=== PATIENT | female | born 1945 | race Caucasian/White ===

== ENCOUNTER 2016-04-04 13:29 | Inpatient (IN) | payer MEDICARE, MEDICAID ==
[~2016-04-04] VITALS: Ht 154.9 cm; Wt 44.3 kg
[~2016-04-04 13:29] MED LIST: HALO5 PO
[2016-04-04] MEDS ORDERED: HALOPERIDOL 5 MG TABLET PO PRN (15:45)
[2016-04-04 16:06] VITALS: BP 128/67
[2016-04-04] MEDS: HALOPERIDOL 5 MG TABLET PO SCH (16:20)
[2016-04-04] MEDS ORDERED: INFLUENZA VIRUS VACCINE QVS 2016-17 (3YR+)/PF 60 MCG/0.5 ML SYRINGE IM ONE (16:30)
[2016-04-04 17:26] LABS: BASOPHILS # (AUTO) 0.02 K/uL (0.00-0.20); BASOPHILS % (AUTO) 0.3 % (0.0-2.0); EOSINOPHILS # (AUTO) 0.08 K/uL (0.00-0.70); EOSINOPHILS % (AUTO) 1.14 % (1.0-6.0); HEMATOCRIT 37.7 % (36-46); HEMOGLOBIN 12.3 g/dL (12.0-16.0); LYMPHOCYTES # (AUTO) 2.3 K/uL (1.0-4.8); LYMPHOCYTES % (AUTO) 32.9 % (22.0-44.0); MEAN CORPUSCULAR HEMOGLOBIN 27.7 pg (26.0-34.0); MEAN CORPUSCULAR HGB CONC 32.7 G/dL (31.0-37.0); MEAN CORPUSCULAR VOLUME 85 fL (80-100); MONOCYTES # (AUTO) 0.6 K/uL (0.1-1.0); MONOCYTES % (AUTO) 8.6 % (2.0-9.0); NEUTROPHILS # (AUTO) 3.9 K/uL (1.8-7.7); NEUTROPHILS % (AUTO) 57.1 % (40.0-70.0); PLATELET COUNT (AUTO) 319 K/uL (150-450); RED BLOOD CELL COUNT(AUTO) 4.45 MIL/uL (4.00-5.20); RED CELL DISTRIBUTION WIDTH 18.3 % (11.5-14.5); WHITE BLOOD COUNT (AUTO) 6.9 K/uL (4.5-11.0)
[2016-04-04] MEDS ORDERED: ACETAMINOPHEN 325 MG TABLET PO PRN (17:30)
[2016-04-04 17:52] LABS: ALBUMIN 3.6 g/dL (3.4-5.0); BILIRUBIN,TOTAL 0.3 mg/dL (0.1-1.0); CREATININE 1.05 mg/dL (0.60-1.30); POTASSIUM 4.1 mmol/L (3.5-5.1); THYROID STIMULATING HORMONE 0.09 uIU/mL (0.36-3.74); TOTAL PROTEIN, SERUM 7.3 g/dL (6.4-8.2)
[2016-04-04 18:12] LABS: RBC MORPHOLOGY COMMENT ABNORMAL RBC MORPH
[2016-04-04] MEDS: ZOLPIDEM TARTRATE 10 MG TABLET PO PRN (21:00)
[2016-04-05 04:47] VITALS: BP 125/65
[2016-04-05] MEDS: HALOPERIDOL 5 MG TABLET PO SCH ×2 (08:25→16:43)
[2016-04-05] MEDS: NICOTINE 14 MG/24 HOUR PATCH TD SCH (08:28)
[2016-04-05 09:00] VITALS: BP 111/78
[2016-04-06 06:12] VITALS: BP 123/71
[2016-04-06] MEDS: HALOPERIDOL 5 MG TABLET PO SCH ×2 (08:23→16:09)
[2016-04-06] MEDS: NICOTINE 14 MG/24 HOUR PATCH TD SCH (08:23)
[2016-04-06 08:30] VITALS: BP 119/59
[2016-04-06] MEDS: LORazepam 2 MG TABLET PO PRN (14:49)
[2016-04-06 17:00] VITALS: BP 127/74
[2016-04-07] VITALS (7 sets, daily range): BP systolic 101–124; BP diastolic 71–91
[2016-04-07] MEDS: IBUPROFEN 400 MG TABLET PO PRN ×2 (00:36→21:40)
[2016-04-07] MEDS: HALOPERIDOL 5 MG TABLET PO SCH ×2 (08:09→17:32)
[2016-04-07] MEDS: NICOTINE 14 MG/24 HOUR PATCH TD SCH (08:10)
[2016-04-07] MEDS: LORazepam 2 MG TABLET PO PRN ×2 (10:11→21:40)
[2016-04-08 06:45] VITALS: BP 120/76
[2016-04-08 08:00] VITALS: BP 126/83
[2016-04-08] MEDS: HALOPERIDOL 5 MG TABLET PO SCH ×2 (09:05→15:54)
[2016-04-08] MEDS: NICOTINE 14 MG/24 HOUR PATCH TD SCH (09:05)
[2016-04-08 09:26] VITALS: BP 126/83
[2016-04-08 17:52] VITALS: BP 130/63
[2016-04-08] MEDS: IBUPROFEN 400 MG TABLET PO PRN (17:52)
[2016-04-08] MEDS: ZOLPIDEM TARTRATE 10 MG TABLET PO PRN (23:41)
[2016-04-09 00:05] VITALS: BP 111/67
[2016-04-09] MEDS: LORazepam 2 MG TABLET PO PRN (03:20)
[2016-04-09 08:00] VITALS: BP 105/55
[2016-04-09] MEDS: NICOTINE 14 MG/24 HOUR PATCH TD SCH ×2 (09:00→15:55)
[2016-04-09] MEDS: HALOPERIDOL 5 MG TABLET PO SCH ×2 (09:00→15:56)
[2016-04-09] MEDS ORDERED: MAG HYDROX/AL HYDROX/SIMETH ES 30 ML SUSPENSION UDCUP PO PRN (15:00)
[2016-04-09 17:33] VITALS: BP 126/77
[2016-04-09 18:02] VITALS: BP 120/68
[2016-04-09] MEDS: IBUPROFEN 400 MG TABLET PO PRN (18:02)
== END 2016-04-09 20:30 | disposition home or self-care (01) | DRG 885 ==
LOC: 3EX 15:00
PROVIDERS: ADMIT Psychiatry & Neurology Child & Adolescent Psychiatry; ATTEND Psychiatry & Neurology Child & Adolescent Psychiatry
DX: F25.0 Schizoaffective disorder, bipolar type (principal); D64.9 Anemia, unspecified; M19.90 Unspecified osteoarthritis, unspecified site; M81.0 Age-related osteoporosis without current pathological fracture; E02 Subclinical iodine-deficiency hypothyroidism; F41.9 Anxiety disorder, unspecified; Z88.0 Allergy status to penicillin; Z98.890 Other specified postprocedural states; Z83.79 Family history of other diseases of the digestive system; Z79.899 Other long term (current) drug therapy
CPT/HCPCS: 73502; 84439; 84443; 87081

== ENCOUNTER 2024-11-16 15:53 | Inpatient (IN) | payer MEDICARE, MEDICAID ==
[~2024-11-16] VITALS: Ht 154.9 cm; Wt 48.1 kg
[~2024-11-16 15:53] MED LIST changes: -HALO5 PO; +HALO5TAB2 PO
[2024-11-16 17:49] LABS: COVID AG,FIA SOURCE NASAL SWAB
[2024-11-16 17:57] LABS: PLATELET COUNT (AUTO) 206 K/uL (150-450); RED BLOOD CELL COUNT(AUTO) 4.08 MIL/uL (4.00-5.20); RED CELL DISTRIBUTION WIDTH 13.2 % (11.5-14.5); WHITE BLOOD COUNT (AUTO) 5.8 K/uL (4.5-11.0)
[2024-11-16] MEDS ORDERED: LACT10SO85 PO (17:59)
[2024-11-16] MEDS ORDERED: ALBU18HF12 IH (17:59)
[2024-11-16] MEDS ORDERED: CHOL4PAC9 PO (17:59)
[2024-11-16] MEDS ORDERED: TRAZ150T80 PO (17:59)
[2024-11-16] MEDS ORDERED: OLAN1TAB3 PO (17:59)
[2024-11-16] MEDS ORDERED: ACET-3862 PO (17:59)
[2024-11-16] MEDS ORDERED: PHEN28OI9 TP (17:59)
[2024-11-16] MEDS ORDERED: DOCU-412 PO (17:59)
[2024-11-16] MEDS ORDERED: MELA5TAB40 PO (17:59)
[2024-11-16] MEDS ORDERED: UMEC1DIS (17:59)
[2024-11-16] MEDS ORDERED: AZEL137S8 NASAL (17:59)
[2024-11-16] MEDS ORDERED: LORA0.5T20 PO (17:59)
[2024-11-16] MEDS ORDERED: MONT-35 PO (17:59)
[2024-11-16] MEDS ORDERED: HYDR-4062 PO (17:59)
[2024-11-16] MEDS ORDERED: ALEN70TA65 PO (17:59)
[2024-11-16] MEDS ORDERED: DIVA-111 PO (17:59)
[2024-11-16 18:02] LABS: CALCIUM, TOTAL 9.3 mg/dL (8.8-10.5); CREATININE 1.54 mg/dL (0.60-1.30); GLOMERULAR FILTR. RATE CALC 33.0 mL/min (>60); GLUCOSE,RANDOM 98.0 mg/dL (70-110); SODIUM SERUM 144.0 mmol/L (136-145); UREA NITROGEN, BLOOD 17.0 mg/dL (7-18)
[2024-11-16 18:19] LABS: SARS-COV2 (COVID) ANTIGEN,FIA Negative (Negative)
[2024-11-16] MEDS ORDERED: OLANZapine 5 MG RAPDIS TABLET PO PRN (19:00)
[2024-11-16] MEDS ORDERED: ZOLPIDEM TARTRATE 10 MG TABLET PO PRN (19:00)
[2024-11-16 23:34] VITALS: BP 145/85; PULSE 88; RESP 18; TEMP 98.2; O2SAT 98
[2024-11-17] MEDS ORDERED: OMEPRAZOLE 20 MG CAPSULE PO PRN (08:30)
[2024-11-17] MEDS ORDERED: ONDANSETRON 4 MG TABLET PO PRN (08:30)
[2024-11-17] MEDS ORDERED: MAG HYDROX/ALUMINUM HYD/SIMETH ES 30 ML SUSPENSION UDCUP PO PRN (08:30)
[2024-11-17] MEDS ORDERED: MELATONIN 5 MG TABLET PO PRN (08:30)
[2024-11-17] MEDS ORDERED: BENZOCAINE/MENTHOL [CEPACOL] LOZENGE PO PRN (08:30)
[2024-11-17] MEDS ORDERED: LACTULOSE 20 GM/30 ML SOLUTION UDCUP PO PRN (08:30)
[2024-11-17] MEDS ORDERED: ACETAMINOPHEN 325 MG TABLET PO PRN (08:30)
[2024-11-17] MEDS ORDERED: ALBUTEROL SULFATE HFA 90 MCG/PUFF 8 GM INHALER IH PRN (08:30)
[2024-11-17] MEDS ORDERED: PETROLATUM,WHITE 28 GM JELLY TP PRN (08:30)
[2024-11-17] MEDS ORDERED: IBUPROFEN 600 MG TABLET PO PRN (08:30)
[2024-11-17] MEDS ORDERED: BACITRACIN 28 GM OINTMENT TP PRN (08:30)
[2024-11-17 09:27] VITALS: BP 134/79; PULSE 94; RESP 18; TEMP 97.5; O2SAT 98
[2024-11-17] MEDS: DIVALPROEX SODIUM 250 MG ER TABLET PO SCH (16:57)
[2024-11-17 17:10] LABS: APPEARANCE,URINE CLEAR (CLEAR); GLUCOSE, URINE (UA) NEGATIVE (NEGATIVE); LEUKOCYTE ESTERASE ,URINE NEGATIVE (NEGATIVE); NITRATE,URINE NEGATIVE (NEGATIVE); OCCULT BLOOD,URINE NEGATIVE (NEGATIVE); PH,URINE DRUG SCREEN 6.0 (5.0-8.0); SPECIFIC GRAVITIY, URINE 1.005 (1.003-1.030)
[2024-11-17 17:22] LABS: ALCOHOL, URINE DRUG SCREEN NEGATIVE (NEGATIVE); AMPHET/METH SCREEN,URINE NEGATIVE (NEGATIVE); BARBITURATE SCREEN, URINE NEGATIVE (NEGATIVE); CANNABINOID SCREEN,URINE NEGATIVE (NEGATIVE); COCAINE SCREEN,URINE NEGATIVE (NEGATIVE); METHADONE SCREEN, URINE NEGATIVE (NEGATIVE)
[2024-11-17 20:09] VITALS: BP 98/58; PULSE 88; RESP 18; TEMP 97.6; O2SAT 95
[2024-11-17] MEDS: MELATONIN 5 MG TABLET PO SCH (20:38)
[2024-11-17] MEDS: MONTELUKAST SODIUM 10 MG TABLET PO SCH (20:38)
[2024-11-18] MEDS: ALENDRONATE SODIUM 70 MG TABLET PO SCH (06:14)
[2024-11-18 09:45] VITALS: BP 140/87; PULSE 86; RESP 17; TEMP 98; O2SAT 96
[2024-11-18] MEDS: DOCUSATE SODIUM 100 MG CAPSULE PO PRN (17:08)
[2024-11-18] MEDS: MAGNESIUM HYDROXIDE SUSPENSION 30 ML UDCUP PO PRN (21:07)
[2024-11-18 22:55] VITALS: BP 110/54; PULSE 89; RESP 18; TEMP 97.6; O2SAT 97
[2024-11-19 08:55] VITALS: BP 119/60; PULSE 68; RESP 18; TEMP 97.8; O2SAT 97
[2024-11-19] MEDS: LOPERAMIDE HCL 2 MG CAPSULE PO PRN (20:06)
[2024-11-19 21:14] VITALS: BP 98/59; PULSE 83; RESP 18; TEMP 98.8; O2SAT 98
[2024-11-20 07:21] LABS: PLATELET COUNT (AUTO) 173 K/uL (150-450); RED BLOOD CELL COUNT(AUTO) 4.06 MIL/uL (4.00-5.20); RED CELL DISTRIBUTION WIDTH 13.5 % (11.5-14.5); WHITE BLOOD COUNT (AUTO) 6.3 K/uL (4.5-11.0)
[2024-11-20 07:48] LABS: ASPARTATE AMINOTRANSFERASE 28.0 U/L (15-37); CALCIUM, TOTAL 9.0 mg/dL (8.8-10.5); CHOL/HDL RATIO 3.4 (3.9-5.7); CREATININE 1.37 mg/dL (0.60-1.30); GLOMERULAR FILTR. RATE CALC 37.0 mL/min (>60); LDL CHOL (CALC.) 88.0 mg/dL (0-130); PHOSPHORUS 3.1 mg/dL (2.5-4.9); SODIUM SERUM 145.0 mmol/L (136-145); TOTAL PROTEIN, SERUM 6.2 g/dL (6.4-8.2); UREA NITROGEN, BLOOD 13.0 mg/dL (7-18)
[2024-11-20 07:55] LABS: GLUCOSE,RANDOM 90.0 mg/dL (70-110)
[2024-11-20 09:48] VITALS: BP 108/72; PULSE 78; RESP 19; TEMP 97.2; O2SAT 99
[2024-11-20] MEDS: CHOLESTYRAMINE/ASPARTAME 4 GM POWDER PACKET PO SCH ×2 (13:47→17:36)
[2024-11-20 22:56] VITALS: BP 111/70; PULSE 75; RESP 18; TEMP 97.7; O2SAT 99
[2024-11-21 09:39] VITALS: BP 107/53; PULSE 84; RESP 18; TEMP 97.5; O2SAT 98
[2024-11-21] MEDS: PHENYLEPHRINE/SHK LV/MIN OIL/PET 57 GM OINTMENT TP PRN (10:00)
[2024-11-21 22:00] VITALS: BP 100/58; PULSE 80; RESP 19; TEMP 98.7; O2SAT 95
[2024-11-22 09:08] VITALS: BP 108/41; PULSE 91; RESP 18; TEMP 97.6; O2SAT 96
[2024-11-22 20:15] VITALS: BP 106/74; PULSE 83; RESP 18; TEMP 97.7; O2SAT 95
[2024-11-23 09:14] VITALS: BP_SYST 100; BP_SYST 118; BP_DIAS 57; BP_DIAS 72; PULSE 79; PULSE 82; RESP 18; TEMP 97.3; TEMP 98; O2SAT 100
[2024-11-23] MEDS ORDERED: OLAN10TA74 PO (14:20)
== END 2024-11-23 20:55 | disposition home or self-care (01) | DRG 885 ==
LOC: EMS 15:53 → 3EI 22:34 → 3EX 22:42 → 3EI 11-21 09:13
PROVIDERS: ADMIT Psychiatry & Neurology Psychiatry; ATTEND Psychiatry & Neurology Psychiatry
PROC: GZHZZZZ Group Psychotherapy (ICD-10-PCS; principal; 2024-11-17)
PROC: GZ58ZZZ Individual Psychotherapy, Cognitive-Behavioral (ICD-10-PCS; 2024-11-17)
PROC: GZ56ZZZ Individual Psychotherapy, Supportive (ICD-10-PCS; 2024-11-17)
DX: F31.4 Bipolar disorder, current episode depressed, severe, without psychotic features (principal); N18.30 Chronic kidney disease, stage 3 unspecified; K86.1 Other chronic pancreatitis; R45.851 Suicidal ideations; F25.1 Schizoaffective disorder, depressive type; G47.00 Insomnia, unspecified; I12.9 Hypertensive chronic kidney disease with stage 1 through stage 4 chronic kidney disease, or unspecified chronic kidney disease; M81.0 Age-related osteoporosis without current pathological fracture; J31.0 Chronic rhinitis; K21.9 Gastro-esophageal reflux disease without esophagitis; J44.9 Chronic obstructive pulmonary disease, unspecified; F41.9 Anxiety disorder, unspecified; Z20.822 Contact with and (suspected) exposure to COVID-19; Z88.0 Allergy status to penicillin; Z79.899 Other long term (current) drug therapy
CPT/HCPCS: 80048; 80053; 80061; 80164; 80307; 81003; 83036; 83735; 84100; 84443; 85025; 87081; 92526; 92610; 97161; 97165; 99285; G0378; G0480